=== PATIENT | male | born 1940 | race Caucasian/White ===

== ENCOUNTER 2017-02-21 12:53 | Emergency (ER) | payer MEDICARE, BC ==
--- NOTE | 2017-02-21 13:50 | EDM.PDOC ---
ED HPI GENERAL MEDICAL PROBLEM - General Chief Complaint: Genitourinary Problem Stated Complaint: Urinary retention and bleeding Time Seen by Provider: 02/21/17 13:30 Source of Information: Reports: Patient, RN Notes Reviewed History Limitations: Reports: No Limitations - History of Present Illness INITIAL COMMENTS - FREE TEXT/NARRATIVE: 76 year old male presents to the ED today with complaints of penile pain, bleeding, and urinary retention. He had bladder biopsies performed by Dr. Shah on 02/18/17. He was discharged home with a rosas catheter. On 02/18/17 he pulled the rosas catheter out himself with the balloon intact. He pulled the rosas because is uncomfortable and he felt the constant need to void. His hematuria was minimal prior to this. He then noticed an increase in bleeding from his urethra. He then developed urinary retention. He reports finding a long , thin object and inserting it into his urethra. He was able to alleviate the pressure and was able to void. He says he removed a clot with the object. He now complains of penile pain. He denies the sensation of urinary retention at this time. Penis Pain Score (Numeric/FACES): 6 - Related Data Allergies Allergy/AdvReac Type Severity Reaction Status Date / Time No Known Allergies Allergy Verified 02/21/17 13:23 Home Meds: Home Meds Ibrutinib [Imbruvica] 420 mg PO DAILY 02/21/17 [History] Tamsulosin HCl 0.4 mg PO DAILY 02/21/17 [History] Past Medical History HEENT History: Reports: Cataract, Impaired Vision Cardiovascular History: Reports: Other (See Below) Other Cardiovascular History: hypotension Genitourinary History: Reports: None Oncologic (Cancer) History: Reports: Lymphoma - Past Surgical History HEENT Surgical History: Reports: None Cardiovascular Surgical History: Reports: None Male Surgical History: Reports: Other (See Below) Other Male Surgeries/Procedures: bladder biopsy Social & Family History - Family History Family Medical History: Noncontributory - Tobacco Use Smoking Status *Q: Never Smoker - Caffeine Use Caffeine Use: Reports: Coffee - Recreational Drug Use Recreational Drug Use: No ED ROS GENERAL - Review of Systems Review Of Systems: See Below Respiratory: Reports: No Symptoms Cardiovascular: Reports: No Symptoms GI/Abdominal: Reports: No Symptoms. Denies: Abdominal Pain : Reports: Dysuria, Hematuria, Urinary Retention ED EXAM, RENAL/ - Physical Exam Exam: See Below Exam Limited By: No Limitations General Appearance: Alert, WD/WN, No Apparent Distress Respiratory/Chest: No Respiratory Distress, Lungs Clear Cardiovascular: Regular Rate, Rhythm GI/Abdominal: Normal Bowel Sounds, Soft, Non-Tender (Male) Exam: Normal Inspection Course - Vital Signs Last Recorded V/S: Last Vital Signs Temp 97.7 F 02/21/17 13:23 Pulse 66 02/21/17 13:23 Resp 16 02/21/17 13:23 BP 119/54 L 02/21/17 13:23 Pulse Ox 96 02/21/17 13:23 - Orders/Labs/Meds Orders: Active Orders 24 hr Category Date Time Status CULTURE URINE [RM] Stat Lab 02/21/17 15:50 Uncollected Labs: Laboratory Tests 02/21/17 02/21/17 Range/Units 14:00 14:20 WBC 2.89 L (4.23-9.07) K/mm3 RBC 3.81 L (4.63-6.08) M/mm3 Hgb 11.1 L (13.7-17.5) gm/L Hct 33.7 L (40.1-51.0) % MCV 88.5 (79.0-92.2) fl MCH 29.1 (25.7-32.2) pg MCHC 32.9 (32.2-35.5) g/dl RDW Std Deviation 48.3 H (35.1-43.9) fL Plt Count 54 L (163-337) K/mm3 MPV 10.3 (9.4-12.3) fl Neut % (Auto) 52.6 (34.0-67.9) % Lymph % (Auto) 24.6 (21.8-53.1) % [place] % (Auto) 20.4 H (5.3-12.2) % Eos % (Auto) 0.3 L (0.8-7.0) Baso % (Auto) 2.1 H (0.1-1.2) % Neut # (Auto) 1.52 L (1.78-5.38) K/mm3 Lymph # (Auto) 0.71 L (1.32-3.57) K/mm3 [place] # (Auto) 0.59 (0.30-0.82) K/mm3 Eos # (Auto) 0.01 L (0.04-0.54) K/mm3 Baso # (Auto) 0.06 (0.01-0.08) K/mm3 Manual Slide Review Abnormal smear Urine Color Patrizia H (Yellow) Urine Appearance Turbid H (Clear) Urine pH 5.5 (5.0-8.0) Ur Specific [place] 1.025 (1.005-1.030) Urine Protein 3+ H (Negative) Urine Glucose (UA) Negative (Negative) Urine Ketones 1+ H (Negative) Urine Occult Blood 3+ H (Negative) Urine Nitrite Positive H (Negative) Urine Bilirubin 3+ H (Negative) Urine Urobilinogen 2.0 H (0.2-1.0) Ur Leukocyte Esterase 3+ H (Negative) Urine RBC Too numerous to cnt H (0-5) /hpf Urine WBC 50-75 H (0-5) /hpf Urine WBC Clumps Not seen (NOT SEEN) /hpf Ur Epithelial Cells 5-10 H (0-5) /hpf Amorphous Sediment Few H (NOT SEEN) /hpf Urine Bacteria Many H (FEW) /hpf Urine Mucus Few (FEW) /hpf Meds: Medications Discontinued Medications Generic Name Dose Route Start Last Admin Trade Name Freq PRN Reason Stop Dose Admin Ceftriaxone Sodium 1 gm/ 0 gm 02/21/17 15:49 Lidocaine HCl 2.1 ml IM 02/21/17 15:50 ONETIME ONE - Re-Assessments/Exams Free Text/Narrative Re-Assessment/Exam: Patient has a history of cancer which explains his low WBC and platelets. His H& H is stable and does not warrant blood transfusion. UA is positive for gross blood, nitrites, and leukocytes. Lab called and said the micro is quite complex and will require some time. Will add urine culture. Post-void bladder scan revealed 70ml of urine within the bladder. I called and spoke to Urologist netsuite consultant Dr. Guerrero. Dr. Shah did speak to him about this patient so he is aware of the case. Dr. Haque recommends that we give him a dose of Rocephin and then send him to [facility]. He will plan to see him in the ER and place a new rosas catheter. The family was made aware of the recommendations. They said they need to go home to [place] to close up their house before going to [place]. I strongly encouraged them to go directly to the ER. I spoke to ER Physician Dr. Zaman and made him aware that the patient will be coming. Will fax today's records to the ER. Departure - Departure Time of Disposition: 15:46 Disposition: DC/Tfer to Acute Hospital 02 Condition: Good Clinical Impression: Hematuria Qualifiers: Hematuria type: unspecified type Qualified Code(s): R31.9 - Hematuria, unspecified - Discharge Information Instructions: Hematuria, Adult Referrals: Booker Shah MD [Primary Care Provider] - Forms: ED Department Discharge Additional Instructions: Go to [facility] emergency room for further evaluation and treatment Nothing to eat or drink before you get there. - My Orders Last 24 Hours: My Active Orders 02/21/17 15:50 CULTURE URINE [RM] Stat - Assessment/Plan Last 24 Hours: My Active Orders 02/21/17 15:50 CULTURE URINE [RM] Stat
[2017-02-21] MEDS ORDERED: cefTRIAXone 1 GM, Lidocaine 1% 2.1 ML IM ONE ×2 (15:49)
[2017-02-21 16:17] VITALS: BP 140/74
== END 2017-02-21 16:10 ==
LOC: JD.ED 12:53
DX: R31.9 Hematuria, unspecified (principal); I95.9 Hypotension, unspecified; Z85.72 Personal history of non-Hodgkin lymphomas; Z79.899 Other long term (current) drug therapy
CPT/HCPCS: 36415; 51798; 81001; 85025; 87086; 96372; 99284; J0696; 99283